=== PATIENT | male | born 2000 | race Caucasian/White ===

== ENCOUNTER 2025-09-06 19:41 | Emergency (ER) | payer SELFPAY ==
[2025-09-06] MEDS: Ketorolac 30 MG/ML SDV IM ONE (22:10)
[2025-09-06] MEDS: Bacitracin Oint 1 GM U/D Packet TOP ONE (22:10)
== END 2025-09-06 22:18 | disposition home or self-care (01) ==
LOC: DL.ED 19:41
DX: S68.113A Complete traumatic metacarpophalangeal amputation of left middle finger, initial encounter (principal); W26.8XXA Contact with other sharp object(s), not elsewhere classified, initial encounter
CPT/HCPCS: 13131; 73140; 96372; 99283; 99284; A9270; J1885; J2003